=== PATIENT | female | born 2000 | race Two or more races ===

== ENCOUNTER 2020-02-06 23:37 | Emergency (ER) | payer MEDICAID, OTHER ==
[~2020-02-06] VITALS: Ht 154.9 cm; Wt 130.0 kg
[2020-02-07] MEDS ORDERED: ACETAMINOPHEN 500 MG TABLET PO ONE (00:30)
[2020-02-07] MEDS ORDERED: SODIUM CHLORIDE 0.9% 1,000ML IVBOLUS ONE (00:30)
--- NOTE | 2020-02-07 00:40 | NUR ---
THIS IS A 19 YO FEMALE COMING IN FOR "I'VE BEEN ON MY PERIOD FOR ALMOST 3 WEEKS, I'VE HAD A HEADACHE AND DIZZINESS FOR THE LAST WEEK OR SO. I FELT REALLY COLD EARLIER." PT FEBRILE 100.8. TOOK 1500MG TYLENOL AROUND 6PM ROCÍO. DENIES SOB/COUGH/CHEST PAINS. C/O MILD NAUSEA INTERMITTENTLY FOR PAST WEEK. PATIENT STATES "I DIDN'T HAVE MY PERIOD FOR A COUPLE MONTHS, THEN IT CAME BACK AND I'VE BEEN BLEEDING FOR LIKE 3 WEEKS". UNKNOWN STATUS. ALL MONITORING IN PLACE, SINUS TACHYCARDIA ON MONITOR. PIV PLACED, LABS DRAWN, IVF STARTED. BLOOD CULTURES DRAWN X2. CALL LIGHT IN REACH
[2020-02-07] MEDS ORDERED: IBUPROFEN 800 MG TABLET ONE (00:49)
[2020-02-07 00:52] LABS: BASOPHILS # (AUTO) 0.03 x10^3/uL (0-0.3); BASOPHILS % (AUTO) 0 % (0-1); EOSINOPHILS # (AUTO) 0.01 x10^3/uL (0-0.8); EOSINOPHILS % (AUTO) 0 % (1-7); LYMPHOCYTES # (AUTO) 2.07 x10^3/uL (1-6.1); LYMPHOCYTES % (AUTO) 25 % (22-44); MD NO; MEAN CORPUSCULAR HEMOGLOBIN 29.9 pg (27.0-34.8); MEAN CORPUSCULAR HGB CONC 33.5 g/dL (32.4-35.8); MEAN PLATELET VOLUME 9.7 fL (7.4-10.4); MONOCYTES # (AUTO) 0.51 x10^3/uL (0-1.4); MONOCYTES % (AUTO) 6 % (2-9); NEUTROPHILS # (AUTO) 5.61 x10^3/uL (1.8-8.0); NEUTROPHILS % (AUTO) 68 % (42-75); PLATELET COUNT 224 x10^3/uL (130-400); RED CELL DISTRIBUTION WIDTH 13.6 % (9.6-15.2)
[2020-02-07] MEDS ORDERED: IBUPROFEN 800 MG TABLET PO ONE (01:00)
[2020-02-07 01:03] LABS: ALBUMIN 3.8 g/dL (3.4-5.0); ANION GAP 10 mmol/L (5-15); CALCIUM 8.6 mg/dL (8.5-10.1); CHLORIDE 107 mmol/L (98-107)
--- NOTE | 2020-02-07 01:04 | NUR ---
PATIENT AMBULATORY WITH STEADY GAIT TO RESTROOM FOR UA
[2020-02-07 01:10] LABS: ALANINE AMINOTRANSFERASE 54 U/L (12-78); ALKALINE PHOSPHATASE 64 U/L (45-117); BILIRUBIN,TOTAL 0.2 mg/dL (0.2-1.0); CREATININE 1.08 mg/dL (0.55-1.02); TROPONIN I < 0.015 ng/mL (0.000-0.045)
--- NOTE | 2020-02-07 01:14 | NUR ---
UA COLLECTD AND SENT TO LAB
[2020-02-07 01:23] LABS: HCG UR SG 1.029 (1.003-1.030)
[2020-02-07 01:24] LABS: MICROSCOPIC INDICATED
[2020-02-07 02:39] VITALS: BP 114/52
--- NOTE | 2020-02-07 02:39 | NUR ---
Patient given discharge instructions and they have confirmed that they understand the instructions. Patient ambulatory with steady gait.
== END 2020-02-07 04:40 | disposition home or self-care (01) ==
LOC: ED 02-07 00:19
DX: R50.9 Fever, unspecified (principal); N93.8 Other specified abnormal uterine and vaginal bleeding; R42 Dizziness and giddiness; R00.0 Tachycardia, unspecified
CPT/HCPCS: 36415; 71045; 80053; 81001; 81025; 83605; 84145; 84484; 85025; 87040; 87086; 93005; 96360; 99285; J7030